=== PATIENT | male | born 1970 | race Caucasian/White ===

== ENCOUNTER 2016-10-23 05:10 | Inpatient (IN) | payer MEDICAID ==
[2016-10-22 17:07] LABS: BASOPHILS 0.7 % (0.0-2.0); EOSINOPHILS 2.3 % (0-7); HEMATOCRIT 44.1 % (42.0-54.0); IMMATURE GRANULOCYTES 0.3 % (0-5); LYMPHOCYTES 28.3 % (15-50); MCH 31.8 pg (26.0-34.0); MCV 93.4 fL (80.0-100.0); MEAN PLATELET VOLUME 9.9 fL (7.4-10.4); MONOCYTES 10.1 % (2-11); NEUTROPHILS 58.3 % (40-80); PLATELET COUNT 262 10x3/uL (130-400); RBC 4.72 10x6/uL (4.20-6.10); RDW 13.1 % (11.5-14.5)
[2016-10-22 17:34] LABS: CALC OSMOLALITY 280 mosm/kg (275-300); CALCIUM 9.7 mg/dL (8.5-10.1); CARBON DIOXIDE 26.3 mmol/L (21.0-32.0); CHLORIDE - SERUM 106 mmol/L (98-107); GLUCOSE 110 mg/dL (74-106); POTASSIUM - SERUM 4.4 mmol/L (3.5-5.1); SODIUM 141 mmol/L (136-145); UREA NITROGEN 9 mg/dL (7-18); eGFR NON AFRICAN AMERICAN 85 mL/min (90-120)
[2016-10-23] VITALS (18 sets, daily range): BP systolic 125–165; BP diastolic 67–111; Ht 180.3 cm; Wt 67.1 kg
[~2016-10-23] VITALS: Ht 180.3 cm; Wt 67.1 kg
[~2016-10-23 05:10] MED LIST: HYDROCODON-ACE1 EAC7 PO; NORCO 7.5/325 T1 TA1 PO
[2016-10-23 06:25] LABS: APPEARANCE CLOUDY (CLEAR); BILIRUBIN NEGATIVE (NEGATIVE); COLOR YELLOW (YELLOW); GLUCOSE NEGATIVE (NEGATIVE); KETONE NEGATIVE (NEGATIVE); LEUKOCYTE ESTERASE NEGATIVE (NEGATIVE); NITRITE NEGATIVE (NEGATIVE); PROTEIN NEGATIVE (NEGATIVE); UROBILINOGEN NORMAL (NORMAL)
--- NOTE | 2016-10-23 10:18 | HP ---
PATIENT: OLESYA CABRREA MEDICAL RECORD: [id number] ACCOUNT: [id number] LOCATION[place] [place] 68 ADMISSION DATE: 10/23/16 HISTORY AND PHYSICAL EXAMINATION CHIEF COMPLAINT: Neck pain. HISTORY OF PRESENT ILLNESS: This is a pleasant gentleman who presented to our office with complaints of right arm pain. He had previously been hospitalized and had an MRI at [facility] with complaints of right neck and shoulder pain, and noted to have some weakness in his right arm with numbness. It has worsened over the past couple of weeks. 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 He smokes a pack a day. He has not had any physical therapy and is rendered almost impossible to work. PAST MEDICAL HISTORY: He denies any heart disease, lung disease, diabetes or cancer. PAST SURGICAL HISTORY: Looks like he had a left elbow ORIF as a child and appendectomy. SOCIAL HISTORY: He smokes a pack per day. He drinks beer on a daily basis and he has a significant other. Family doctor is Dr. Thompson. ALLERGIES: None. MEDICATIONS: Hydrocodone 5, which he hardly takes for pain. REVIEW OF SYSTEMS: He denies any recent chest pain, shortness of breath or weight changes, but he does have a chronic cough. He is coughing here in the office. PHYSICAL EXAMINATION: GENERAL: This is a 5 feet 11 inches male who weighs 155 pounds. HEENT: Normocephalic. Pupils are equal and reactive to light. CHEST: Clear bilaterally to auscultation. HEART: S1 and S2. ABDOMEN: Soft and bowel sounds present. EXTREMITIES: His bilateral upper extremities has strength of 4/5. IMPRESSION: Right greater than left neural foraminal stenosis at C5-C6 and C4-C5. PLAN: C4-5, C5-6 ACDF. The risk and benefits of surgery have been explained in detail. Risks include bleeding, problems with anesthesia and . Time was allowed for questions, questions were answered. The patient wishes to proceed with surgery. TRANSINT:[id number] Voice Confirmation ID: [id number] DOCUMENT ID: [id number] Dictated By: AARON MELENDEZ I have interviewed/examined the above patient and agree with these documented findings. HISTORY AND PHYSICAL [id number] OLESYA CABRERA JACI HINOJOSA MDally Signed by JACI HINOJOSA on 10/23/16 at 1018 at 1224 CC: [id number] DICTATION DATE: 10/22/16 170 LIFE SCIENCE RESEARCH ASSISTANT: 10/22/16 1812 ADM IN [facility] [address] [id number]
--- NOTE | 2016-10-23 10:29 | NUR ---
ENTRANCE BP WAS HIGH AND ANESTHESIA GAVE 10MG LABETELOL IV UPON ENTRACE TO RR
--- NOTE | 2016-10-23 10:31 | NUR ---
PRE OPERATIVE BP PER ANESTHESIA WAS 140/90
--- NOTE | 2016-10-23 15:16 | NUR ---
Is the patient Alert and Oriented? Yes 0 * How many steps to enter\exit or inside your home? 3 0 * PCP DR. POLLARD 0 * Pharmacy [facility] [address] * Preadmission Environment Home with Family 0 * ADLs Independent 0 * Equipment None 0 * List name and contact numbers for known caregivers / representatives who currently or will assist patient after discharge: GIRLFRIEND: KEISHA [phone] 0 * Community resources currently utilized None 0 * Additional services required to return to the preadmission environment? No 0 * Can the patient safely return to the preadmission environment? Yes 0 * Has this patient been hospitalized within the prior 30 days at any hospital? No 0 PATIENT IS AWAKE AND ALERT. HE STATES HE LIVES WITH HIS GIRLFRIEND, KEISHA. SHE WILL BE AVAILABLE TO DRIVE HIM HOME AT DISCHARGE. HIS PCP IS DR. POLLARD. HE GETS HIS MEDS AT [facility] [address] PATIENT DENIES USE OF ANY EQUIPMENT AND DENIES EVER HAVING HOME HEALTH. PATIENT STATES THERE ARE 3 STEPS TO ENTER HIS HOME. NO DISCHARGE NEEDS IDENTIFIED AT THIS TIME.
--- NOTE | 2016-10-23 21:15 | NUR ---
NO VISITORS AT THIS TIME, NO NEEDS NOTED, WILL CON'T TO MONITOR
--- NOTE | 2016-10-23 23:04 | NUR ---
REASSESSMENT COMPLETE, NO CHANGES NOTED, PT RESTING AT THIS TIME, NO NEEDS NOTED, VSS, CALL LIGHT IN REACH
[2016-10-24] VITALS (7 sets, daily range): BP systolic 131–150; BP diastolic 75–87
--- NOTE | 2016-10-24 01:00 | NUR ---
PT DENIES ANY NEEDS AT THIS TIME, WILL CON'T TO MONITOR
--- NOTE | 2016-10-24 03:16 | NUR ---
REPORT RECIEVED, SHIFT ASSESSMENT COMPLETE, NO CHANGES NOTED, PT RESTING AT THIS TIME, VSS, CALL LIGHT IN REACH
--- NOTE | 2016-10-24 05:27 | NUR ---
NO NEEDS NOTED, WILL CON'T TO MONITOR
--- NOTE | 2016-10-24 07:00 | NUR ---
ASSESSMENT PER FLOWSHEET. VOICES NO CO AT TIME.
[2016-10-24] MEDS ORDERED: ROBAXIN-750750 MG PO (07:02)
[2016-10-24] MEDS ORDERED: VALIUM5 MG PO (07:03)
[2016-10-24] MEDS ORDERED: HYDROCODON-ACE1 EAC7 PO (07:03)
--- NOTE | 2016-10-24 07:05 | OP ---
PATIENT NAME: EMEKA CABRERA MEDICAL RECORD: [id number] :68 LOCATION:[facility] D.2308 ADMISSION DATE:10/23/16 SURGEON: JACI HINOJOSA MD DATE OF OPERATION: 10/23/2016 PREOPERATIVE DIAGNOSIS: Right C5, C6 radiculopathy. POSTOPERATIVE DIAGNOSIS: Right C5, C6 radiculopathy. PROCEDURE PERFORMED: Anterior approach to the cervical spine: 1. Application of intervertebral biomechanical device at C4-C5, C5-C6. 2. Discectomy with bilateral foraminotomies at C4-C5, C5-C6. 3. Anterior interbody arthrodesis at C4-C5, C5-C6 with endplate preparation. 4. Anterior plate fixation with bilateral vertebral body screws at C4, C5 and C6. 5. Use of intraoperative microscope with intraoperative microdissection techniques. COMPLICATIONS: None apparent. IMPLANTS: Alphatec: 1. A 37-mm Trestle Luxe plate. 2. An 8-mm PEEK interbody cages (medium) at C4-C5, C5-C6. 3. A 16-mm variable angle screws bilaterally at C4-C5 and 16-mm fixed angle screws at C6 bilaterally. COMPLICATIONS: None apparent. FINDINGS: No changes in the SSEPs. ESTIMATED BLOOD LOSS: 20 mL. SPECIMENS: Disc sent per hospital policy. HISTORY OF PRESENT ILLNESS: Mr. Emeka Cabrera is a pleasant 45-year-old gentleman who presented to clinic with progressive intractable right upper extremity pain. Imaging was consistent with a right C4, right C5-C6 foraminal stenosis. I had an extensive discussion with him regarding continued conservative therapy versus operative intervention in the form of C4-C5 and C5-C6 anterior cervical discectomy and fusion. 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 At the end of the discussion, he ultimately chose to undergo operative decompression and fixation. Again, the risks and benefits of the procedure were discussed in detail to the patient preoperatively including risk of damage to surrounding structures, airway compromise and hematoma, and need for further surgery. DESCRIPTION OF PROCEDURE: Mr. Cabrera was identified by anesthesia team and transported to operating theater. He was gently transferred over to the supine position on the operative bed where general endotracheal anesthesia commenced and all appropriate lines and tubes were placed. The anterior neck was prepped and draped in the usual sterile fashion after a shoulder bump was placed underneath the scapula and his head was placed in extension. His pressure points were padded and eyes were accounted for by the anesthesia team. Using lateral fluoroscopy, the incision was marked. After a timeout was performed and OPERATIVE REPORT [id number] EMEKA CABRERA agreed by those present, a #10 blade was used to make a level of the skin incision down to underlying platysma. The patient did receive 2 mg IV dexamethasone as well as IV Ancef and gentamicin prior to the skin incision. Bovie electrocautery was used to transect the platysma muscle. The plane between the carotid bundle laterally, and the trachea and esophageal bundle medially was identified and developed until the anterior cervical spine was reached. Please note the platysma was undermined with Metzenbaum scissors rostrally and caudally. The Metzenbaum scissors were used to open and develop the prevertebral fascia. A peanut was used to bluntly dissect the prevertebral fascia away from underlying cervical spine. A snap was affixed to the C5-C6 disc space and that confirmed to be the appropriate level on lateral fluoroscopy. Low-power Bovie electrocautery was used to expose the portion of the C6 and C4 vertebral bodies as well as the entire C5 vertebral body anteriorly. The longus colli was released laterally with the low-power Bovie electrocautery. The Trimline retractor was then placed and gently placed under a self-retaining retraction. Starting with the C4-C5 disc space, [place] pins were placed in C4 and C5 vertebral bodies under lateral fluoroscopy. A square cut was made with a 15 mm in the C4-C5 disc space and pituitary rongeurs were used to perform initial discectomy. Gentle distraction with the [place] pins was employed and the microscope was brought into the field and used until closure. Using a combination of elevators, curettes, pituitary rongeurs and Kerrison rongeurs, a discectomy was performed as well as bilateral foraminotomies and the PLL was resected. A blunt nerve hook was used to ensure satisfactory decompression at the bilateral C4-C5 foramina. Small amount of Surgiflo hemostatic matrix was instilled into the epidural space to control a very small amount of hemorrhage. This was rinsed away and no further hemorrhage was appreciated. Ultimately, an 8-mm medium trial was inserted and found to be satisfactory under lateral fluoroscopy. As such, an 8-mm medium PEEK cage from the Alphatec set was packed with DBX putty and inserted under lateral fluoroscopy to the appropriate depth. [place]lerville pins in C4 was removed and the [place] tract was filled with Surgiflo for hemostasis. No appreciable hemorrhage thereafter. The [place] pin was then placed into the C6 vertebral body after the self-retaining retractors that we positioned to the C5-C6 level. [place]lerville distraction system was reinserted and a square cut was made in the disc similar to the level above. Gentle amount of distraction was deployed and the C5-C6 discectomy proceeded uneventfully in the same fashion as the C4-C5 discectomy described above. Again, the blunt nerve hook was used to ensure bilateral foraminal decompression. Small amount of Surgiflo was used to the epidural space and rinsed away with no appreciable hemorrhage. Again, an 8-mm trial was inserted and found to be satisfactory in the lateral fluoroscopy. Thus, an 8-mm PEEK cage from the Alphatec set was packed with DBX putty and inserted into the disc space and found to be in satisfactory position on lateral fluoroscopy. A 37-mm Alphatec plate was then laid into position and viewed on lateral fluoroscopy. Using the handheld drill guide, the vertebral body drill holes were drilled under lateral fluoroscopy. Initially, C5 and C6 with variable angle screws being placed at those levels under lateral fluoroscopy. The self-retaining retractors were removed and the esophageal handheld retractor was used to retract for placement of the C4 screws bilaterally which occurred in the same manner. Fluoroscopy was used to confirm adequate positioning of the plate. The screws were driven down to their final depth to activate the locking mechanism and confirmed prior to closure to be locked and final tightened. A copious amount of irrigation was used. There was no significant hemorrhage in the surgical field. The [place] pins have previously been removed from C5-C6 prior to plate placement and Surgiflo hemostatic matrix was used to provide hemostasis in the [place] tract. Copious amount of irrigation was used and OPERATIVE REPORT [id number] EMEKA CABRERA rinsed away. A 10-Romansh round drain was laid into place overlying the plate and tunneled away from the incision, supraplatysmal fashion. Interrupted 3-0 Vicryl sutures were used to reapproximate the platysma and the skin was closed with a running 4-0 subcuticular Monocryl suture. The drain was secured into place with 3-0 Vicryl suture. The area was cleaned and dried with a wet to dry dressing and Dermabond was used to seal the incision. Sponge and needle counts were correct times 2 at the end of the case. There were no changes in SSEP neuromonitoring throughout the case. The patient appeared to tolerate the procedure well without any intraoperative complications. I updated the patient's mother and girlfriend immediately postoperatively in the waiting room. TRANSINT:[id number] Voice Confirmation ID: [id number] DOCUMENT ID: [id number] JACI HINOJOSA MD at 0705 CC: [id number] DICTATION DATE: 10/23/16 1044 CLEAN ROOM TECHNICIAN: 10/23/16 1147 ADM IN [id number] [place] [address]
--- NOTE | 2016-10-24 08:00 | NUR ---
ARMIN CALLED OK TO DC DRAIN DONT NEED TO SEE PT BEFORE HE LEAVES.
--- NOTE | 2016-10-24 10:00 | NUR ---
DCD TO HOME. INSTRUCTIONS GIVEN FU WITH DR HINOJOSA IN 2 WEEKS. PT WANTS TO CALL AND MAKE OWN APPT. PHONE NUMBER GIVEN. VOICES NO QUESTIONS GIVEN RX. LEFT WITH VIA PRIVATE AUTO.
== END 2016-10-24 10:21 | disposition home or self-care (01) | DRG 473 ==
LOC: D.SDCHOLD 05:10 → D.ICU 05:10 → D.SDCHOLD 07:30 → D.ICU 10:29
PROVIDERS: ADMIT Neurological Surgery
PROC: 0RB30ZZ Excision of Cervical Vertebral Disc, Open Approach (ICD-10-PCS; 2016-10-23)
PROC: 0RG20A0 Fusion of 2 or more Cervical Vertebral Joints with Interbody Fusion Device, Anterior Approach, Anterior Column, Open Approach (ICD-10-PCS; principal; 2016-10-23 08:00)
PROC: 0RG20K0 Fusion of 2 or more Cervical Vertebral Joints with Nonautologous Tissue Substitute, Anterior Approach, Anterior Column, Open Approach (ICD-10-PCS; 2016-10-23 08:00)
DX: M48.02 Spinal stenosis, cervical region (principal)

== ENCOUNTER → 2016-11-15 08:47 | Outpatient (CLI) | payer MEDICAID ==
[2016-10-23 10:49] VITALS: BMI 25.2
[~2016-11-15 08:47] MED LIST changes: +ROBAXIN-750750 MG PO; +VALIUM5 MG PO
== END | disposition home or self-care (01) ==
LOC: D.RAD 08:45
DX: Z98.1 Arthrodesis status (principal)

== ENCOUNTER → 2016-12-27 09:04 | Outpatient (CLI) | payer MEDICAID ==
[2016-10-23 10:49] VITALS: BMI 25.2
== END | disposition home or self-care (01) ==
LOC: D.RAD 08:33
DX: M43.22 Fusion of spine, cervical region (principal)

== ENCOUNTER → 2017-07-10 08:19 | Outpatient (CLI) | payer MEDICAID ==
[2016-10-23 10:49] VITALS: BMI 25.2
== END ==
LOC: D.MRI 08:19
DX: M75.102 Unspecified rotator cuff tear or rupture of left shoulder, not specified as traumatic (principal)

== ENCOUNTER → 2018-09-09 09:09 | Outpatient (CLI) | payer MEDICAID ==
[2016-10-23 10:49] VITALS: BMI 25.2
--- NOTE | ~2018-09-09 | ST ---
PATIENT:OLESYA CABRERA MEDICAL RECORD: [id number] SEX: M LOCATION:[facility] ORDER #: ADMISSION DATE: 09/09/18 AGE OF PATIENT: 47 REFERRING PHYSICIAN: INTERPRETING PHYSICIAN: JARVIS MCKEON MD DATE OF SERVICE: 09/09/2018 PROCEDURE: Nuclear stress test. INDICATION: Angina, hypertension, abnormal ECG, family history of coronary artery disease. DESCRIPTION: He was exercised on standard Lexiscan protocol with 33 mCi injected at peak stress, 10 mCi were used previously for rest images. FINDINGS: Gated SPECT reveals a preserved ejection fraction of 58% with good wall motioning and thickening and brightening throughout all segments. SPECT imaging: Cardiolite was used as myocardial perfusion agent. There is homogeneous uptake throughout all segments at rest and stress with no evidence of inducible ischemia or previous infarction. OVERALL IMPRESSION: 1. This is a normal nuclear stress test with no evidence of inducible ischemia or previous infarction. 2. Gated SPECT reveals a preserved ejection fraction of 58%. In this patient with ongoing symptomatology, the current scan does not suggest the presence of hemodynamically significant coronary disease. Evaluate noncardiac etiology of chest pain. TRANSINT:[id number] Voice Confirmation ID: [id number] DOCUMENT ID: [id number] JARVIS MCKEON MD at 1718 CC: [id number] DICTATION DATE: 09/09/18 1621 BOAT LABORER: 09/10/18 0848 [facility] CLI 09/09/18 [facility] [address] [place] [address]
== END | disposition home or self-care (01) ==
LOC: D.HCCARDIO 09:09
DX: I20.9 Angina pectoris, unspecified (principal)

== ENCOUNTER → 2018-09-29 09:15 | Outpatient (CLI) | payer MEDICAID ==
[2016-10-23 10:49] VITALS: BMI 25.2
== END | disposition home or self-care (01) ==
LOC: D.MRI 09:15
DX: M54.5 Low back pain (principal)